=== PATIENT | female | born 1970 | race Caucasian/White ===

== ENCOUNTER → 2020-09-13 10:54 | Outpatient (CLI) | payer OTHER, MEDICARE, SELFPAY ==
--- NOTE | ~2020-09-13 | MR_ITS ---
EXAMINATION: MR lumbar spine wo/w con DATE: 09/13/2020 12:01 INDICATION: Left-sided low back pain. Lumbar radiculopathy. TECHNIQUE: Magnetic resonance imaging (MRI) of the lumbar spine was performed without and with 20 mL MultiHance intravenous contrast. Sequences included sagittal T2-weighted FSE, sagittal T2-weighted FS FSE, and sagittal and axial T1-weighted FSE. Postcontrast sequences included axial T2-weighted FSE a nd axial and sagittal T1-weighted FS FSE. COMPARISON: Lumbar spine MRI 11/24/2013 FINDINGS: There is 5 degrees levocurvature of lumbar spine. There is 3 mm retrolisthesis of L3 on L4 and L5 on S1. There are changes of posterior fusion procedure at L5-S1 with pedicle screws. Vertebral body heights are normal. There is moderately decreased disc height at L5-S1. The distal spinal cord signal intensity is normal. The conus medullaris is at T12-L1. The following disc levels are specific ally discussed: L1-L2: The disc does not extend beyond the endplate margin. There is moderate bilateral facet joint o steoarthritis. There is mild bilateral neural foraminal stenosis. There is no central canal stenosis. L2-L3: The disc is mildly bulging. There is moderate bilateral facet joint osteoarthritis. There is m ild right neural foraminal stenosis. There is no central canal stenosis. L3-L4: The disc is mildly bulging. There is severe bilateral facet joint osteoarthritis. There is mil d bilateral neural foraminal stenosis. There is no central canal stenosis. L4-L5: The disc is bulging. There is severe bilateral facet joint osteoarthritis. There is moderate b ilateral neural foraminal stenosis. There is mild central canal stenosis. L5-S1: The disc is bulging and has an annular fissure. There is moderate bilateral facet joint hypert rophy. There is mild bilateral neural foraminal stenosis. There is no central canal stenosis. IMPRESSION: 1. Moderate lumbar spondylosis, worsened from 11/24/2013. 2. Posterior fusion procedure at L5-S1. Reviewed, dictated and finalized at location A.
[2020-09-13 11:32] LABS: Estimated Glomerular Filt Rate > 60
== END ==
PROVIDERS: Visit Provider Nurse Practitioner Family
DX: M47.817 Spondylosis without myelopathy or radiculopathy, lumbosacral region (principal); M48.07 Spinal stenosis, lumbosacral region
CPT/HCPCS: 72158; A9577

== ENCOUNTER 2021-06-25 15:15 | Emergency (ER) | payer OTHER, MEDICARE, SELFPAY ==
[2021-06-25] VITALS (17 sets, daily range): BP systolic 115–133; BP diastolic 68–81; PULSE 62–78; RESP 8–19; TEMP 36.8; O2SAT 98–100
--- NOTE | 2021-06-25 19:09 | ED.DIZZY ---
HPI - Dizziness General Chief Complaint: Dizziness Stated Complaint: DIZZINESS X1D Time Seen by Provider: 06/25/21 18:50 Source: patient and RN notes reviewed Mode of arrival: ambulatory Limitations: no limitations History of Present Illness HPI Narrative: 50-year-old female with history of vertigo presents the emergency department for evaluation of dizziness. Patient states that she did have a ground-level fall on Saturday. Patient denies any injury from the fall but states she was shaken up. Patient denies striking her head and denies any loss consciousness. Patient states on Saturday when she woke up she did have the onset of vertigo symptoms. Patient states she does have a spinning sensation. Patient denies any headache. Denies any associated numbness or weakness. Patient states symptoms are improved when she is lying down or closing her eyes. Patient states symptoms are worsened with movement. Patient did have try some [id number] motion sickness medication with no improvement. Related Data Allergies Allergy/AdvReac Type Severity Reaction Status Date / Time No Known Allergies Allergy Verified 02/27/21 10:16 Review of Systems Review of Systems: CONSTITUTIONAL: Denies fever, chills, or sweats. EYES: Denies visual changes, redness, or discharge. ENT: Denies rhinorrhea, congestion, sore throat, or otalgia. CARDIOVASCULAR: Denies chest pain, palpitations, or edema. RESPIRATORY: Denies cough or dyspnea. GASTROINTESTINAL: Denies abdominal pain, nausea, vomiting, or diarrhea. GENITOURINARY: Denies dysuria or hematuria. SKIN: Denies rash or itching. MUSCULOSKELETAL: Denies back pain, joint pain, or myalgia. NEUROLOGIC: Denies any headache nausea weakness but does report a spinning sensation. PSYCHIATRIC: Denies anxiety or depression. [facility] Past Medical History Medical History BMI 32.0-32.9,adult COVID-19 Family History Family History Mother Family history of lung cancer Father Family history of coronary artery disease Social History Social History Smoking status: Never smoker Second hand tobacco smoke exposure: Yes Alcohol intake: current Substance use: never Substance use type: does not use Gender identity (if verbalized by the patient): Female Exam Narrative: APPEARANCE: Well appearing, no pain, no distress, well-nourished. HEAD: normocephalic, atraumatic. EYES: PERRLA/EOMI, conjunctivae clear. Possible sustained nystagmus when looking to the right NOSE: Normal no drainage EARS:TMS clear with good light reflex. THROAT: Pharynx clear, no exudate. NECK: Supple. No adenopathy, no masses. RESPIRATORY: Airway patent, respirations nonlabored. Clear to auscultation bilaterally, no rales, rhonchi, wheezing. CARDIOVASCULAR: Regular rate and rhythm without murmurs rubs or gallops. ABDOMINAL: Soft, nontender, nondistended, normal bowel sounds MUSCULOSKELETAL: Moves all extremities. Strength/ROM intact, No edema, No calf tenderness. NEURO: Alert. Cranial nerves II through XII intact. Good gait. Good coordination. Vertigo symptoms are induced with looking up and possibly to the right. Vertigo symptoms are improved with closing her eyes. Otherwise normal neuro exam. SKIN: Warm, dry. Normal Color Course Reevaluation(s) Reevaluation #1: Patient did feel improved with treatment in the emergency room. Patient was able to ambulate in the emerge department without any significant difficulty. Patient states she did still have some residual dizziness but did feel improved compared to arrival. Patient states she was comfortable with the plan for discharge to home and close follow-up with her primary care physician. Patient was also encouraged to seek follow-up with neurology and a vestibular specialist Vital Signs Vital signs: Vital Signs Temperature 98.2 F
[2021-06-25] MEDS: MECLIZINE HCL 25 MG TABLET PO (19:24)
[2021-06-25] MEDS: diazePAM (*CRX) 2 MG TABLET PO (19:24)
== END 2021-06-25 21:15 | disposition home or self-care (01) ==
PROVIDERS: Emergency Provider Emergency Medicine; PCP Family Medicine
DX: R42 Dizziness and giddiness (principal); Z86.16 Personal history of COVID-19; Z77.22 Contact with and (suspected) exposure to environmental tobacco smoke (acute) (chronic)
CPT/HCPCS: 99283; A9270

== ENCOUNTER → 2021-09-29 11:01 | Outpatient (CLI) | payer OTHER, MEDICARE, SELFPAY ==
--- NOTE | ~2021-09-29 | MM_ITS ---
EXAMINATION: MM screening tereso BI w cristopher HISTORY: Screening TECHNIQUE: Craniocaudal and mediolateral oblique 3-D tomosynthesis images were obtained and synthetic 2-D images were generated. CAD analysis was submitted and interpreted. COMPARISON: Comparison to multiple prior studies sequentially, with oldest reviewed study dated 10/30. BREAST PARENCHYMAL COMPOSITION: There are scattered areas of fibroglandular density. FINDINGS: There is no evidence of suspicious mass, calcification, or architectural distortion to sugg est malignancy in either breast. There has been no suspicious interval change. IMPRESSION: 1. No mammographic evidence of malignancy. 2. Recommend routine screening mammography in one year. BI-RADS Category 1: Negative Reviewed, dictated and finalized at location A.
== END ==
PROVIDERS: PCP Family Medicine; Visit Provider Obstetrics & Gynecology
DX: Z12.31 Encounter for screening mammogram for malignant neoplasm of breast (principal)
CPT/HCPCS: 77063; 77067

== ENCOUNTER → 2022-05-04 10:36 | Outpatient (CLI) | payer OTHER, MEDICARE, SELFPAY ==
--- NOTE | ~2022-05-04 | XR_ITS ---
EXAMINATION: XR wrist LT min 3V DATE: 05/04/2022 10:47 INDICATION: Left wrist pain TECHNIQUE: Posteroanterior, ulnar deviation, oblique, and lateral views of the left wrist were obtain ed. COMPARISON: None available FINDINGS: No fracture, dislocation, or subluxation. The bones, soft tissues, and joint spaces are nor mal. IMPRESSION: 1. No acute osseous abnormality. Reviewed, dictated and finalized at location A. 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
== END ==
PROVIDERS: PCP Family Medicine; Visit Provider Plastic Surgery
DX: M19.032 Primary osteoarthritis, left wrist (principal)
CPT/HCPCS: 73110

== ENCOUNTER 2022-06-22 08:43 | Outpatient (CLI) | payer OTHER, MEDICARE, SELFPAY ==
--- NOTE | 2022-06-22 11:00 | NEURO_ITS ---
Impression: Patient reports a history of bilateral wrist pain and paresthesias. # Normal Nerve Conduction Study. # Normal needle/EMG exam. # Clinical correlation recommended. Motor Nerve Conduction Upper Extremities Median Nerve Conduction Velocity (m/sec) Terminal Latency (msec) Response Voltage(mV) Elbow-Wrist Wrist Elbow Wrist Right 54 3.4 5 7 Left 56 3.4 5 6 Ulnar Nerve Conduction Velocity (m/sec) Terminal Latency (msec) Response Voltage(mV) Above Elbow Below Elbow Wrist Above Elbow Below Elbow Wrist Right 52 52 2.4 5 5 7 Left 52 52 2.4 5 5 6 F-Wave Latency Median (ms) Ulnar (ms) Right 29.5 29.8 Left 30.1 30.9 Sensory Nerve Conduction Upper Extremities Median Nerve Stimulation Terminal Latency (msec) Wrist/Digit Response Voltage (uV) Wrist Right 3.6/3.5 31/35 Left 3.4/3.5 41/37 Ulnar Nerve Stimulation Terminal Latency (msec) Wrist/Digit Response Voltage (uV) Wrist Right 2.5 29 Left 2.7 24 Radial Nerve Terminal Latency (msec) Response Voltage(mV) Right 1.8 17 Left 2.0 23 Left Right Muscles Examined Fibrillation Fasciculation Scarcity Voltage Duration Left Right Left Right Left Right Left Right Left Right Deltoid Biceps X X Brachioradialis Triceps X X Pronator Teres X X Ext Indicis X X Ext Digitorum X X Abd Poll Brev X X 1st Dorsal Interosseus Paraspinals MTDD
== END 2022-06-22 08:44 | disposition home or self-care (01) ==
LOC: ANHNEURO 08:45
PROVIDERS: PCP Family Medicine; Visit Provider Plastic Surgery
DX: R20.0 Anesthesia of skin (principal)
CPT/HCPCS: 95886; 95911

== ENCOUNTER 2022-11-19 12:46 | Outpatient (CLI) | payer OTHER, MEDICARE, SELFPAY | END 2022-11-19 12:47 | disposition home or self-care (01) | LOC: ANHAUDIO 12:47 | PROVIDERS: PCP Family Medicine; Visit Provider Otolaryngology | DX: H93.19 Tinnitus, unspecified ear (principal); H81.11 Benign paroxysmal vertigo, right ear; H90.3 Sensorineural hearing loss, bilateral | CPT/HCPCS: 92557; 92567 ==

== ENCOUNTER 2022-11-19 14:27 | Outpatient (CLI) | payer OTHER, MEDICARE, SELFPAY ==
--- NOTE | 2022-11-22 11:50 | WPDHOLTEREM ---
Holter/Event Monitor Holter/Event Monitor Date of procedure: 11/19/22 Holter/Event Procedure: 24 Hr Holter Monitor Indications: Palpitations Conclusion: 1. 24 hour holter monitor on 11/19/22. 2. Underlying rhythm is sinus rhythm. HR range 52-118 bpm; average 72 bpm. 3. There are 3 premature supraventricular complexes and 1 supraventricular triplet. No supraventricular tachycardia. 4. There are 541 premature ventricular complexes. No ventricular tachycardia. 5. No sinoatrial or atrioventricular blocks. No significant pauses greater than 2 seconds. 6. No symptoms available for correlation.
== END 2022-11-19 14:28 | disposition home or self-care (01) ==
LOC: ANHCARD 14:28
PROVIDERS: PCP Family Medicine; Visit Provider Nurse Practitioner Family
DX: R00.2 Palpitations (principal)
CPT/HCPCS: 36430; 93225; 93226

== ENCOUNTER 2023-01-29 11:12 | Outpatient (CLI) | payer OTHER, MEDICARE, SELFPAY ==
--- NOTE | 2023-02-08 08:46 | WPDHOMESLEEP ---
Sleep Study - Home Unattended Date of Study: 01/29/23 Ordering Provider: Nikko Medrano DO Interpreting Provider: Abby Soliz MD Home Sleep Study Type: Watch PAT Height: 1.78 m Weight: 111.584 kg Body Mass Index: 35.3 Neck Circumference (inches): 17 [place]: 13 Reason for Sleep Study Hypersomnolence Sleep History Denzel Poole is a 52-year-old woman with loud snoring. She is having a home sleep test for concerns regarding obstructive sleep apnea, referred by her recreation clerk. She never awakens from sleep short of breath. She rarely at night with heartburn, belching or coughing.??She frequently snores, and frequently snores loudly enough that others complain. She never wakes up gasping for breath during the night. She never has breathing problems at night. She never sweats excessively at night. She occasionally notices her heart pounding or beating irregularly during the night. She frequently falls asleep during the day. She never falls asleep involuntarily, never falls asleep while driving. She never experiences loss of muscle tone with strong emotion. She never feels paralyzed on waking or falling asleep. She occasionally experiences vivid dreams upon waking or falling asleep. She never feels rarely afraid of going to sleep. She rarely has nightmares. She rarely recalls her dreams. She occasionally has thoughts racing through her mind. She rarely feels sad or depressed. She rarely feels anxiety. She never notices parts of her body jerk. She never kicks during the night. She never feels crawling or aching feelings in her legs. She never feels leg pain at night. She frequently grinds her teeth, frequently has morning jaw pain. She occasionally feels bothered by pain during the day, occasionally awakened by pain during the night. She occasional wakes up feeling stiff in the morning, occasionally wakes feeling sore or achy in the morning. Occasionally, she awakens with pain in her neck, spine, or joints. Normal bedtime is 10:00 p.m., usually falling asleep within 30-45 minutes. She typically gets about 6-8 hours hours of sleep per night. Her wake time is 7:00 a.m. She wakes maybe once during the night. On weekends, bedtime is later, midnight or be on. She wakes between 9:00 a.m. and 10:00 a.m. on the weekends. In general she takes naps in the afternoon or evening. A short nap lasting 10 or 15 minutes is not refreshing. She is drowsy for an hour after waking. She feels better in the afternoon compared to other times of day. Habits:??Tobacco: never smoked. Caffeine: One per day at most. Alcohol: no Recreational substances: none PMFSH Past Medical History Medical History BMI 33.0-33.9,adult BMI 34.0-34.9,adult COVID-19 Elevated LFTs Essential (primary) hypertension Mixed hyperlipidemia Tendonitis of wrist, left Type 2 diabetes mellitus with hyperglycemia Surgical History Surgical History H/O Spinal surgery Family History Family History Mother Family history of lung cancer Father Family history of coronary artery disease Sibling Graves disease Social History Social History Smoking status: Never smoker Second hand tobacco smoke exposure: Yes Alcohol intake: current Alcohol use details: occasionally Substance use: never Substance use type: does not use Lack of Transportation: No Lack of Food: Never True Current Housing: I Have Housing Concerned About Future Housing: No Difficulty Paying Gas/Electric Bills: No Difficulty Paying for Meds: No Currently Unemployed: No Education: High School Diploma/GED Difficulty w/ Childcare or Family Care: No Living arrangements: with family Occupation/Education: unemployed Additional occ
[2023-02-10 15:36] VITALS: BMI 35.3
== END 2023-01-30 13:05 | disposition home or self-care (01) ==
LOC: ANHCSM 11:12
PROVIDERS: PCP Family Medicine; Visit Provider Internal Medicine Cardiovascular Disease
DX: G47.33 Obstructive sleep apnea (adult) (pediatric) (principal); G47.10 Hypersomnia, unspecified
CPT/HCPCS: 95800

== ENCOUNTER 2023-02-24 00:53 | Emergency (ER) | payer OTHER, MEDICARE, SELFPAY ==
--- NOTE | ~2023-02-24 | XR_ITS ---
XR tibia fibula RT 2V DATE: 02/24/2023 01:38 INDICATION: Proximal lower leg pain TECHNIQUE: AP and lateral views COMPARISON: None FINDINGS: There is a linear oblique nondisplaced fracture at the neck and proximal shaft of the fibul a. Tibiotalar osteoarthritis Plantar and posterior calcaneal enthesopathy. IMPRESSION: Linear oblique nondisplaced fibular neck and proximal shaft fracture Tibiotalar osteoarthritis Plantar and posterior calcaneal enthesopathy Reviewed, dictated and finalized at location A. IMPRESSION: Linear oblique nondisplaced fibular neck and proximal shaft fractur e Tibiotalar osteoarthritis Plantar and posterior calcaneal enthesopathy
--- NOTE | ~2023-02-24 | XR_ITS ---
XR ankle RT min 3V DATE: 02/24/2023 01:38 INDICATION: Lateral ankle pain TECHNIQUE: 4 views COMPARISON: None FINDINGS: Mild lateral soft tissue swelling. No fracture or dislocation of the ankle or disruption of the ankle mortise. No periosteal reaction or bone destruction. Tibiotalar osteophytes arthritis. Plantar and posterior calcaneal enthesopathy. IMPRESSION: Mild lateral ankle soft tissue swelling; no fracture or dislocation is detected at the an kle Reviewed, dictated and finalized at location A. IMPRESSION: Mild lateral ankle soft tissue swelling; no fracture or dislocation is detected at the ankle
[2023-02-24 00:55] VITALS: BP 152/67; PULSE 80; RESP 15; TEMP 36.4; O2SAT 100
--- NOTE | 2023-02-24 01:17 | ED.FALL ---
HPI - Fall General Chief Complaint: Fall Stated Complaint: Fell chasing cat Time Seen by Provider: 02/24/23 00:54 History of Present Illness HPI Narrative: 52-year-old female present emergency department for evaluation after having a ground-level fall and injuring her right ankle and right lower leg. Patient states she was walking down a hill attempting to retrieve her cat that had run away when she tripped over a tree root causing her to twist her ankle and fall. Patient denies any other pain or injury. Patient states she does have some pain with ambulation and increased pain with twisting of the ankle. Related Data Home Medications Medication Instructions Recorded Confirmed pregabalin 150 mg capsule 150 mg PO BID 06/04/22 01/14/23 glucagon 3 mg/actuation nasal spray 3 mg intranasal ONCE PRN 06/18/22 01/14/23 Allergies Allergy/AdvReac Type Severity Reaction Status Date / Time farxiga AdvReac Intermediate yeast Uncoded 02/24/23 01:03 infection Review of Systems Review of Systems: All systems reviewed & are unremarkable except as noted in HPI and below PMFSH Past Medical History Medical History BMI 33.0-33.9,adult BMI 34.0-34.9,adult COVID-19 Elevated LFTs Essential (primary) hypertension Mixed hyperlipidemia Tendonitis of wrist, left Type 2 diabetes mellitus with hyperglycemia Surgical History Surgical History H/O Spinal surgery Family History Family History Mother Family history of lung cancer Father Family history of coronary artery disease Sibling Graves disease Social History Social History Smoking status: Never smoker Second hand tobacco smoke exposure: Yes Alcohol intake: current Alcohol use details: occasionally Substance use: never Substance use type: does not use Lack of Transportation: No Lack of Food: Never True Current Housing: I Have Housing Concerned About Future Housing: No Difficulty Paying Gas/Electric Bills: No Difficulty Paying for Meds: No Currently Unemployed: No Education: High School Diploma/GED Difficulty w/ Childcare or Family Care: No Living arrangements: with family Occupation/Education: unemployed Additional occupation/education comments: Disabled/[employer] Gender identity (if verbalized by the patient): Female Exam Narrative: APPEARANCE: Well appearing, no pain, no distress, well-nourished. HEAD: normocephalic, atraumatic. EYES: PERRLA/EOMI, conjunctivae clear. NOSE: Normal no drainage NECK: Supple. No adenopathy, no masses. RESPIRATORY: Airway patent, respirations nonlabored. Clear to auscultation bilaterally, no rales, rhonchi, wheezing. CARDIOVASCULAR: Regular rate and rhythm without murmurs rubs or gallops. ABDOMINAL: Soft, nontender, nondistended, normal bowel sounds MUSCULOSKELETAL: Proximal lateral leg tenderness. NEURO: Alert. Cranial nerves II through XII intact. Grossly intact SKIN: Warm, dry. Normal Color Course Course Emergency Course: 52-year-old female present emergency department for evaluation of right leg pain. X-ray was concerning for a proximal fibular fracture. Patient was placed in a stirrup splint and provided crutches for nonweightbearing. Patient is provided follow-up with orthopedics. All questions and concerns were addressed and patient was comfortable to plan for discharge and close follow-up. Vital Signs Vital signs: Vital Signs Temperature 97.6 F 02/24/23 00:55 Pulse Rate 80 02/24/23 00:55 Respiratory Rate 15 02/24/23 00:55 Blood Pressure 152/67 H 02/24/23 00:55 Pulse Oximetry 100 02/24/23 00:55 Oxygen Delivery Room Air 02/24/23 00:55 Temperature 97.6 F 02/24/23 00:55 Pulse Rate 80 02/24/23 00:55 Respirat
== END 2023-02-24 02:13 | disposition home or self-care (01) ==
PROVIDERS: Emergency Provider Emergency Medicine; PCP Family Medicine
DX: S82.434A Nondisplaced oblique fracture of shaft of right fibula, initial encounter for closed fracture (principal); I10 Essential (primary) hypertension; E78.2 Mixed hyperlipidemia; E11.9 Type 2 diabetes mellitus without complications; Z86.16 Personal history of COVID-19; M77.9 Enthesopathy, unspecified; Z79.85 Long-term (current) use of injectable non-insulin antidiabetic drugs; Z79.4 Long term (current) use of insulin; W18.09XA Striking against other object with subsequent fall, initial encounter
CPT/HCPCS: 29515; 73590; 73610; 99284

== ENCOUNTER 2023-03-09 12:36 | Outpatient (CLI) | payer OTHER, MEDICARE, SELFPAY ==
--- NOTE | 2023-03-09 13:00 | ECHO_ITS ---
Patient Info Name: Denzel Poole Age: 52 years : 1970 Gender: Female Ht: 70 in Wt: 246 lbs BSA: 2.39 m2 HR: 73 bpm BP: 149 / 98 mmHg Technical Quality: Good Exam Date: 03/09/2023 1:17 PM Exam Location: [facility] Pulmonary Patient Status: Outpatient Admit Date: 03/09/2023 Staff Ordering Physician: Nikko Medrano DO Switchboard Receptionist: Lucy Sheth RDCS Attending Provider: Nikko Medrano DO Referring Physician: Mitchell BECK; Exam Type: CA echo doppler color flow Study Info Indications - PARHAM Complete two-dimensional, color flow and Doppler transthoracic echocardiogram is performed. Summary 1. Complete two-dimensional, color flow and Doppler transthoracic echocardiogram is performed. 2. Left ventricular chamber dimension is normal. 3. Left ventricular systolic function is normal, estimated at 60-65%. 4. The left ventricular diastolic function is grade I diastolic dysfunction. 5. E/e' 8 is minimally elevated. 6. There is trace tricuspid valve regurgitation. 7. No pulmonary hypertension, estimated pulmonary arterial systolic pressure is 16 mmHg. Left Ventricle E/e' 8 is minimally elevated. Left ventricular chamber dimension is normal. Left ventricular systolic function is normal, estimated at 60-65%. The left ventricular diastolic function is grade I diastolic dysfunction. Right Ventricle Right ventricular systolic function is normal and with normal TAPSE 2.6 cm. Right ventricular chamber dimension is normal. Left Atria Left atrial chamber dimension is normal. Right Atria Right atrial chamber dimension is normal. Aortic Valve The aortic valve is trileaflet. There is no aortic valve stenosis. There is no aortic valve regurgitation. Pulmonic Valve There is no pulmonic regurgitation. Mitral Valve There is no mitral valve stenosis. There is no mitral valve regurgitation. Tricuspid Valve There is trace tricuspid valve regurgitation. No pulmonary hypertension, estimated pulmonary arterial systolic pressure is 16 mmHg. Pericardium/Pleural There is no pericardial effusion. Inferior Vena Cava Normal inferior vena cava with >50% collapse upon inspiration consistent with normal right atrial pressure, 5 mmHg. Aorta The aortic root size at the sinus of Valsalva is normal. Left Ventricular Outflow Tract Name Value Normal LVOT Doppler LVOT Peak Gradient 5 mmHg LVOT Mean Gradient 3 mmHg LVOT VTI 28 cm LVOT VTI/AV VTI Ratio 0.7 Pulmonic Valve Name Value Normal RVOT Doppler RVOT Peak Gradient 2 mmHg PV Doppler PV Peak Gradient 3 mmHg Mitral Valve Name Value Normal MV Doppler
== END 2023-03-09 12:37 | disposition home or self-care (01) ==
LOC: ANHCARD 12:39
PROVIDERS: PCP Family Medicine; Visit Provider Internal Medicine Cardiovascular Disease
DX: R93.1 Abnormal findings on diagnostic imaging of heart and coronary circulation (principal); I07.1 Rheumatic tricuspid insufficiency; R06.09 Other forms of dyspnea
CPT/HCPCS: 93306

== ENCOUNTER 2023-08-09 10:33 | Outpatient (CLI) | payer OTHER, MEDICARE, SELFPAY ==
--- NOTE | ~2023-08-09 | US_ITS ---
EXAMINATION: US venous doppler [facility] DATE: 08/09/2023 11:32 INDICATION: Left lower limb pain and mass/lump TECHNIQUE: Grayscale ultrasound images without and with compression and Doppler ultrasound images of the left lower extremity veins were obtained. COMPARISON: None. FINDINGS: The visualized portions of left common femoral vein, profunda (deep) femoral vein, femoral vein, popl iteal vein, peroneal veins, posterior tibial veins, gastrocnemius vein and greater saphenous vein out flow are patent. IMPRESSION: 1. No deep venous thrombosis in the left lower limb. Reviewed, dictated and finalized at location A.
== END 2023-08-09 10:34 | disposition home or self-care (01) ==
PROVIDERS: PCP Family Medicine; Visit Provider Physician Assistant
DX: I83.93 Asymptomatic varicose veins of bilateral lower extremities (principal); M79.89 Other specified soft tissue disorders; M79.662 Pain in left lower leg
CPT/HCPCS: 93971

== ENCOUNTER 2023-12-27 14:30 | Outpatient (CLI) | payer OTHER, MEDICARE, SELFPAY ==
--- NOTE | ~2023-12-27 | MR_ITS ---
EXAMINATION: MR lumbar spine wo con DATE: 12/27/2023 15:05 INDICATION: Low back pain. Left leg pain. TECHNIQUE: Magnetic resonance imaging (MRI) of the lumbar spine was performed without intravenous con trast. COMPARISON: Lumbar spine MRI 09/13/2020 FINDINGS: There is 6 degrees levocurvature of lumbar spine. There is 3 mm retrolisthesis of L5 on S1. There is moderately decreased disc height at L5-S1. There are changes of posterior fusion procedure at L5-S1 with pedicle screws. The distal spinal cord signal intensity is normal. The conus medullaris is at T12-L1. The following disc levels are specifically discussed: L1-L2: The disc does not extend beyond the endplate margin. There is severe bilateral facet joint ost eoarthritis. There is mild bilateral neural foraminal stenosis. There is no central canal stenosis. L2-L3: The disc does not extend beyond the endplate margin. There is severe bilateral facet joint ost eoarthritis. There is no neural foraminal stenosis. There is no central canal stenosis. L3-L4: The disc is bulging. There is severe bilateral facet joint osteoarthritis. There is mild bilat eral neural foraminal stenosis. There is no central canal stenosis. L4-L5: There is a right foraminal protrusion. There is severe bilateral facet joint osteoarthritis. T here is mild right and moderate left neural foraminal stenosis. There is mild central canal stenosis. There is moderate stenosis of right lateral recess. L5-S1: The disc is bulging and has an annular fissure. There is moderate bilateral facet joint hypert rophy. There is mild bilateral neural foraminal stenosis. There is no central canal stenosis. IMPRESSION: 1. Moderate lumbar spondylosis, stable from 09/13/2020. 2. Posterior fusion procedure at L5-S1. Reviewed, dictated and finalized at location A.
== END 2023-12-27 14:31 ==
LOC: MICIMG 14:32
PROVIDERS: PCP Family Medicine; Visit Provider Nurse Practitioner Family
DX: M43.06 Spondylolysis, lumbar region (principal); Z98.1 Arthrodesis status
CPT/HCPCS: 72148

== ENCOUNTER 2024-06-05 11:33 | Outpatient (CLI) | payer MEDICARE, OTHER, SELFPAY ==
--- NOTE | ~2024-06-05 | XR_ITS ---
XR knee LT 3V Ordering provider: Delilah Rubio, PAC History: . M25.462 - Effusion, left knee . Comparison: None. FINDINGS: BONES: No acute fracture or dislocation. JOINT SPACES: Slight narrowing of the medial compartment. SOFT TISSUES: Serpiginous opacity seen in the subcutaneous tissues suggestive of varicose veins. IMPRESSION: No acute osseous abnormality left knee. Mild narrowing of the medial compartment which may indicate early osteoarthritic changes. Reviewed, dictated and finalized at location A. 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 Mild narrowing of the medial compartment which may indicate early osteoarthriti c changes.
== END 2024-06-05 11:34 | disposition home or self-care (01) ==
LOC: MICIMG 11:41
PROVIDERS: PCP Family Medicine; Visit Provider Physician Assistant Medical
DX: M25.462 Effusion, left knee (principal); M25.861 Other specified joint disorders, right knee
CPT/HCPCS: 73562

== ENCOUNTER 2024-06-19 11:16 | Outpatient (CLI) | payer MEDICARE, OTHER, SELFPAY ==
--- NOTE | ~2024-06-19 | US_ITS ---
EXAMINATION: US soft tissue LE LT DATE: 06/19/2024 11:34 INDICATION: Left-sided Hoff's cyst. TECHNIQUE: Multiple grayscale and Doppler ultrasound images of the left lower limb were obtained. COMPARISON: Ultrasound 08/09/2023 FINDINGS: There is no Hoff's cyst. There is no abnormal mass in the popliteal fossa. IMPRESSION: 1. No left-sided Hoff's cyst. Reviewed, dictated and finalized at location A. PULLER
== END 2024-06-19 11:17 | disposition home or self-care (01) ==
LOC: MICIMG 11:17
PROVIDERS: PCP Family Medicine; Visit Provider Family Medicine
DX: M79.89 Other specified soft tissue disorders (principal)
CPT/HCPCS: 76882

== ENCOUNTER 2024-10-08 07:05 | Outpatient (CLI) | payer MEDICARE, OTHER, SELFPAY ==
--- NOTE | ~2024-10-08 | MR_ITS ---
MRI of the left knee Clinical history: Pain Technique: Coronal proton density and proton density-weighted images, sagittal proton-density and T2 fat-sat images, and axial proton-density fat-saturated images were acquired. Findings: Anterior and posterior cruciate ligaments are intact. Medial collateral ligament and the la teral collateral ligament, posterior intact. Popliteus tendon is intact. There is a vertical tear of the posterior horn of the medial meniscus. Lateral meniscus is intact. Articular cartilage is well preserved throughout the knee. Bone marrow signals are unremarkable. Extensor mechanism is intact. There is moderate joint effusion. No Hoff's cyst. Impression: Vertical tear of the posterior horn of the medial meniscus. Moderate joint effusion. Reviewed, dictated and finalized at location M. Impression: Vertical tear of the posterior horn of the medial meniscus. Moderate joint effusion.
== END 2024-10-08 07:06 | disposition home or self-care (01) ==
LOC: MICIMG 07:05
PROVIDERS: PCP Family Medicine; Visit Provider Nurse Practitioner Family
DX: S83.242A Other tear of medial meniscus, current injury, left knee, initial encounter (principal); M25.462 Effusion, left knee; X58.XXXA Exposure to other specified factors, initial encounter
CPT/HCPCS: 73721